=== PATIENT | female | born 1945 | race African-American/Black ===

== ENCOUNTER 2018-04-10 13:08 | Emergency (ER) | payer SELFPAY ==
[2018-04-10 13:14] VITALS: BP 123/73; PULSE 96; TEMP 98.1; BMI 21.8
--- NOTE | 2018-04-10 14:06 | PDOC ---
History of Present Illness - General Chief Complaint: Pain Stated Complaint: LT FOOT PAIN Time Seen by Provider: 04/10/18 13:26 History Source: Patient Exam Limitations: No Limitations - History of Present Illness Initial Comments: 04/10/18 14:30 She came for evaluation of left knee pain. States has had aching pain for weeks and has been using rubs, and Pal wraps. But has progressively worsened. Occurred: reports: other Severity: reports: mild Pain Location: reports: lower extremity (right knee ) Method of Injury: Yes: unknown Loss of Consciousness: no loss of consciousness Associated Symptoms (Fall): denies symptoms Past History - Travel Traveled outside of the country in the last 30 days: No Close contact w/someone who was outside of country & ill: No - Past Medical History Allergies/Adverse Reactions: Allergies Allergy/AdvReac Type Severity Reaction Status Date / Time ANESTHESIA Allergy Mild Vomiting Uncoded 04/10/18 13:10 Home Medications: Ambulatory Orders NK [No Known Home Medication] 05/06/15 COPD: No - Surgical History Abdominal Surgery: Yes (TUBAL LIGATION.) - Suicide/Smoking/Psychosocial Hx Smoking History: Never smoked Information on smoking cessation initiated: No Hx Alcohol Use: No Drug/Substance Use Hx: No Substance Use Type: None Review of Systems - Review of Systems Able to Perform ROS?: Yes Is the patient limited Bulgarian proficient: Yes Constitutional: Yes: Symptoms Reported, See HPI HEENTM: Yes: Symptoms Reported Musculoskeletal: Yes: Symptoms Reported, See HPI, Joint Pain, Joint Swelling Integumentary: Yes: Symptoms Reported Neurological: No: Symptoms reported All Other Systems: Reviewed and Negative *Physical Exam - Vital Signs Last Vital Signs Temp Pulse Resp BP Pulse Ox 98.1 F 96 H 18 123/73 100 04/10/18 13:11 04/10/18 13:11 04/10/18 13:11 04/10/18 13:11 04/10/18 13:11 - Physical Exam General Appearance: Yes: Nourished, Appropriately Dressed. 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 Pain is reproduced minimally to posterior fossa of both knees. Left knee without swelling, ballottement, or any other defects. Neurovascular intact). negative: Normal Range of Motion Integumentary: positive: Normal Color, Dry, Warm Neurologic: positive: cloth spreader II-XII NML intact, Fully Oriented, Alert, Normal Mood/ Affect, Normal Response, Motor Strength 5/5 Progress Note - Progress Note Progress Note: X-ray negative for fractures dislocations, has some mild general changes will continue with conservative measures and follow-up with Ortho *DC/Admit/Observation/Transfer Diagnosis at time of Disposition: Left knee sprain Qualifiers: Encounter type: initial encounter Involved ligament of knee: unspecified ligament Qualified Code(s): S83.92XA - Sprain of unspecified site of left knee, initial encounter - Discharge Dispostion Disposition: HOME Condition at time of disposition: Stable Decision to Admit order: No - Referrals Referrals: Valentin Guthrie MD [Staff Physician] - - Patient Instructions Printed Discharge Instructions: DI for Knee Sprain Additional Instructions: Rest, ice to area on and off for 15 minutes 4-6 times a day Avoid heavy lifting or exercise until pain and swelling is resolved or until further directed Keep area highly elevated to reduce swelling Use splints/Pal wrap as directed Followup with orthopedist in one to 2 days if not improving, if significantly improved may wait one week for followup with orthopedist May use ibuprofen 2-200 mg tablets every 6 hours as needed for pain - Post Discharge Activity
== END 2018-04-10 14:48 | disposition home or self-care (01) ==
LOC: JERFT 13:08
DX: S83.92XA Sprain of unspecified site of left knee, initial encounter (principal); X58.XXXA Exposure to other specified factors, initial encounter; Y93.89 Activity, other specified; Y99.2 Volunteer activity
CPT/HCPCS: 73562-TC-LT-FY; 99281-25